=== PATIENT | male | born 1945 | race Two or more races ===

== ENCOUNTER 2017-02-06 03:54 | Emergency (ER) | payer MEDICARE, OTHER ==
[~2017-02-06] VITALS: Ht 175.3 cm; Wt 90.7 kg
[~2017-02-06 03:54] MED LIST: CARB-93 PO; DIAZ5TAB4 PO; GABA-534 PO; RASA1TAB PO; SERT50TA PO
--- NOTE | 2017-02-06 04:00 | NUR ---
Pt biba for mech fall. Pt "stumbled" down 6 stairs, unwitnessed. Pt sts he hit his head, but denies LOC. Pt has history of Parkinson's. Pt c/o pain from back of head down back to tail bone. Pt resting in position of comfort for self. Family at bedside. Dr. Medrano at bedside for MSE
[2017-02-06] MEDS: GABAPENTIN 300 MG CAPSULE PO ONE (04:39)
[2017-02-06 04:41] LABS: BASOPHILS % (AUTO) 0.8 % (0.0-2.0); EOSINOPHILS % (AUTO) 0.6 % (0.0-7.0); HEMATOCRIT 41.6 % (40-50); HEMOGLOBIN 13.7 G/DL (14.0-18.0); LYMPHOCYTES # (AUTO) 1.3 K/UL (0.8-4.8); LYMPHOCYTES % (AUTO) 27.6 % (20.5-51.5); MEAN CORPUSCULAR HEMOGLOBIN 28.2 UUG (27.0-31.0); MEAN CORPUSCULAR HGB CONC 33 g/dL (32.0-37.0); MEAN CORPUSCULAR VOLUME 85.8 FL (82.0-92.0); MONOCYTES # (AUTO) 0.6 K/UL (0.1-1.30); MONOCYTES % (AUTO) 13.3 % (0.0-11.0); NEUTROPHILS # (AUTO) 2.8 K/UL (1.8-8.9); NEUTROPHILS % (AUTO) 57.7 % (38.5-71.5); PLATELET COUNT (AUTO) 324 K/UL (150-450); RED BLOOD CELL COUNT(AUTO) 4.85 MIL/UL (4.7-6.1); WHITE BLOOD COUNT (AUTO) 4.7 K/UL (4.0-11.2)
[2017-02-06] MEDS: MISCELLANEOUS MED XX ONE (04:45)
[2017-02-06] MEDS ORDERED: GABAPENTIN 300 MG CAPSULE ONE (04:46)
[2017-02-06 04:52] LABS: CARBON DIOXIDE 31 mmol/L (21-32); CHLORIDE 102 mmol/L (98-107); GLUCOSE 113 mg/dL (74-106); POTASSIUM 3.7 mmol/L (3.5-5.1); UREA NITROGEN, BLOOD 18 mg/dL (7-20)
[2017-02-06 04:53] LABS: BILIRUBIN,DIRECT 0.1 mg/dL (0.0-0.2); BILIRUBIN,TOTAL 0.6 mg/dL (0.1-1.0); CREATININE 1.3 mg/dL (0.6-1.3)
[2017-02-06 04:54] LABS: ALANINE AMINOTRANSFERASE 16 U/L (16-63); ALKALINE PHOSPHATASE 68 U/L (50-136); ASPARTATE AMINOTRANSFERASE 17 U/L (15-37); TOTAL PROTEIN, SERUM 7.6 g/dL (6.4-8.2)
[2017-02-06] MEDS ORDERED: CARBIDOPA/LEVODOPA 25-100MG TABLET ONE (04:54)
[2017-02-06] MEDS ORDERED: BACL10TA PO (04:57)
--- NOTE | 2017-02-06 05:48 | NUR ---
Pt sts he is feeling better. Pt stable for discharge per MD. Daughter given ACI. Daughter verbalized understanding of dc instructions. Pt ambulated out of er with shuffled steady gait.
[2017-02-06 05:50] VITALS: BP 140/77
== END 2017-02-06 05:52 | disposition home or self-care (01) ==
LOC: ER 03:57
DX: S09.90XA Unspecified injury of head, initial encounter (principal); G20 Parkinson's disease; R51 Headache; F10.20 Alcohol dependence, uncomplicated; W10.9XXA Fall (on) (from) unspecified stairs and steps, initial encounter; Y93.89 Activity, other specified; Y99.8 Other external cause status; Y92.89 Other specified places as the place of occurrence of the external cause
CPT/HCPCS: 36415; 70030-TC; 70450; 71010; 72125; 85025; 85730; 93005; A4663